=== PATIENT | male | born 1945 | race Caucasian/White ===

== ENCOUNTER 2018-05-06 13:36 | Outpatient (CLI) | payer MEDICARE | END 2018-05-06 13:37 | disposition home or self-care (01) | LOC: C.PAT 13:36 | DX: I35.0 Nonrheumatic aortic (valve) stenosis (principal); G45.9 Transient cerebral ischemic attack, unspecified; I10 Essential (primary) hypertension ==

== ENCOUNTER → 2018-05-07 | Day surgery (SDC) | payer MEDICARE ==
[2018-05-06 11:24] VITALS: BMI 23.3
[~2018-05-07] MED LIST: Etomidate 20 mg/10ml Inj IV ONE; Lidocaine 4% (Laryng-O-Jet) Kit MM ONE; Phenylephrine 10 mg/ml Inj ONE
--- NOTE | 2018-05-07 23:16 | CARD ---
APPROVED REPORT Date of service: 05/07/2018 EXAM: Two-dimensional and M-mode echocardiogram with Doppler and color Doppler. 2D DIMENSIONS LVOT Diameter2.2 (1.8-2.4cm) M-Mode DIMENSIONS RVDd1.68 (2.1-3.2cm) Aortic Valve AoV Peak Xadtcmat433.8cm/sAoV VTI39.5cmAO Peak GR.12mmHg LVOT Peak Xmhzgpsx64.9cm/sLVOT VTI21.98cmAO Mean GR.7mmHg KARYNA (VMAX)1.45tc7XSY (VTI)2.16cm2 Mitral Valve E/A ratio0.0 TDI E/Lateral E'0.0E/Medial E'0.0 Reason For Test : Evaluate Aortic valve disease PROCEDURE After obtaining informed consent, patient underwent transesophageal echo in the [facility]. Type of Sedation : Conscious Sedation Sedation was provided by anesthesiologist. Sedation was achieved with intravenously. The SHASHA was performed complications. Throughout the procedure, the blood pressure, pulse oximetry, cardiac rhythm, and rate were monitored. The patient tolerated the procedure without adverse effects. Recovery from conscious sedation was uneventful and vital signs were stable. LEFT VENTRICLE There is moderate concentric left ventricular hypertrophy. The left ventricular function is normal. The left ventricular ejection fraction is within the normal range. No left ventricle thrombus noted on this study. There is no ventricular septal defect visualized. RIGHT VENTRICLE The right ventricle is normal size. The right ventricular systolic function is normal. ATRIA The left atrium size is normal. The right atrium size is normal. Small PFO noted. No bubble cross over noted AORTIC VALVE Aortic valve Fibro calcific There is moderate aortic regurgitation. There is mild valvular aortic stenosis. There is no aortic valvular vegetation. MITRAL VALVE The mitral valve is normal in structure. There is no evidence of mitral valve prolapse. There is no mitral valve stenosis. Mitral regurgitation is mild. TRICUSPID VALVE The tricuspid valve is normal in structure. There is mild tricuspid regurgitation. There is no tricuspid valve prolapse or vegetation. There is no tricuspid valve stenosis. PULMONIC VALVE The pulmonary valve is normal in structure. GREAT VESSELS The aortic root is normal in size. <Conclusion> There is moderate concentric left ventricular hypertrophy. The left ventricular function is normal. The left ventricular ejection fraction is within the normal range. Aortic valve Fibro calcific There is moderate aortic regurgitation. There is mild valvular aortic stenosis.
== END | disposition home or self-care (01) ==
LOC: C.CATHLAB 06:29
PROVIDERS: ATTEND Internal Medicine Cardiovascular Disease
DX: I35.0 Nonrheumatic aortic (valve) stenosis (principal); G45.9 Transient cerebral ischemic attack, unspecified; I10 Essential (primary) hypertension
CPT/HCPCS: 93312; J2001; J2370